=== PATIENT | female | born 1945 | race Caucasian/White ===

== ENCOUNTER 2017-09-09 10:12 | Emergency (ER) | payer OTHER ==
[~2017-09-09] VITALS: Ht 165.1 cm; Wt 65.8 kg
[~2017-09-09 10:12] MED LIST: ASPIR 8181 MG PO; ASPIRIN EC325 M1 PO; AUGMENTIN 875-1 EACH PO; EZETIMIBE PO; FLEXERIL PO; HUMALOG MI100 UNIT/3 SQ; LANTUS SC; LEVOTHROID; LEVOTHYROXIN0.075 MG PO; LISINOPRIL5 MG; LISINOPRIL5 MG PO; OXYBUTYNIN 5 MG5 M1 PO; OXYBUTYNIN 5 MG5 M2 PO; PERCOCET 5-3251 EACH PO; PREDNISONE50 MG PO; ZETIA10 MG PO
[2017-09-09] MEDS ORDERED: MYRBETRIQ25 MG PO (10:30)
[2017-09-09] MEDS ORDERED: VITAMINC500 PO (10:31)
[2017-09-09] MEDS ORDERED: MULTI-BETIC TA1 EACH PO (10:31)
[2017-09-09] MEDS ORDERED: NOVOLOG100 UNIT/1 SUBQ (10:31)
[2017-09-09] MEDS ORDERED: NORCO 5-325 TA1 EACH PO (11:02)
[2017-09-09] MEDS ORDERED: ROBAXIN 750 MG750 MG PO (11:02)
[2017-09-09 11:29] VITALS: BP 130/65
== END 2017-09-09 11:30 | disposition home or self-care (01) ==
LOC: M.ERS 10:12
DX: M54.41 Lumbago with sciatica, right side (principal); E10.9 Type 1 diabetes mellitus without complications; Z79.4 Long term (current) use of insulin; F17.210 Nicotine dependence, cigarettes, uncomplicated; Z88.8 Allergy status to other drugs, medicaments and biological substances

== ENCOUNTER 2018-09-03 06:45 | Emergency (ER) | payer OTHER, MEDICARE ==
[~2018-09-03] VITALS: Ht 165.1 cm; Wt 59.4 kg
[~2018-09-03 06:45] MED LIST changes: +MULTI-BETIC TA1 EACH PO; +MYRBETRIQ25 MG PO; +NORCO 5-325 TA1 EACH PO; +NOVOLOG100 UNIT/1 SUBQ; +ROBAXIN 750 MG750 MG PO; +VITAMINC500 PO
[2018-09-03 07:13] LABS: ABSOLUTE BASOPHILS 0.1 thou/uL (0.0-0.2); ABSOLUTE EOSINOPHILS 0.3 thou/uL (0.0-0.7); ABSOLUTE LYMPHOCYTES 1.2 thou/uL (0.8-5.3); ABSOLUTE MONOCYTES 0.5 thou/uL (0.0-1.2); ABSOLUTE NEUTROPHILS 3.5 thou/uL (1.6-8.1); BASOPHILS 1.3 %; EOSINOPHILS 4.9 %; HEMATOCRIT 43.9 % (37.0-47.0); HEMOGLOBIN 14.8 gm/dL (12.0-15.0); LYMPHOCYTES 21.9 %; MCHC 33.7 g/dL (28.0-37.0); MONOCYTES 8.9 %; MPV 7.9 fl. (7.2-11.1); NUCLEATED RBCS 0 /100WBC; PLATELET COUNT* 277 thou/uL (150-400); RBC 4.93 mil/uL (4.20-5.00); RDW-CV 14.3 % (10.5-14.5); WBC 5.6 thou/uL (4.0-11.0)
[2018-09-03 07:20] LABS: ANION GAP 9 mmol/L (7-16); BUN 10 mg/dL (7-18); CALCIUM 8.7 mg/dL (8.5-10.1); CHLORIDE 103 mmol/L (98-107); CO2 29 mmol/L (21-32); CREATININE 0.7 mg/dL (0.6-1.3); GLUCOSE 158 mg/dL (70-99); POTASSIUM 4.1 mmol/L (3.5-5.1); SODIUM 141 mmol/L (136-145)
[2018-09-03 07:24] LABS: PROTIME 10.1 Seconds (9.20-11.50)
[2018-09-03 07:38] LABS: ALBUMIN 3.8 g/dL (3.4-5.0); ALKALINE PHOSPHATASE 81 U/L (46-116); LIPASE 79 U/L (73-393); NT-PRO BRAIN NAT PEPTIDE 254 pg/mL (<300); SGOT 13 U/L (15-37); SGPT 22 U/L (30-65); TOTAL BILIRUBIN 0.5 mg/dL (<0.1-1.0); TOTAL PROTEIN 7.4 g/dL (6.4-8.2); TROPONIN-I LEVEL <0.06 ng/mL (<0.06)
[2018-09-03 09:48] VITALS: BP 138/54
--- NOTE | 2018-09-05 12:19 | EKG ---
[place] [address] ELECTROCARDIOGRAM REPORT Name: BETINA WILDER Mathew Room: [facility]#: [id number] Admission: 09/03/18 Attend Phys: Discharge: 09/03/18 Date of : 45 Report #: [id number] THIS REPORT FOR: //name// [facility] ED Test Date: 2018-09-03 Test Time: 06:49:36 Pat Name: BETINA PATRICK Department: Room: Gender: F Observer [employer]: MAHESH : 1945 Requested By: Madelyn Thomas Order Number: [id number] MD: Navin Tanner Measurements Intervals [place] Rate: 86 P: 73 [place]: 120 QRS: -55 QRSD: 95 T: 64 QT: 364 QTc: 436 Interpretive Statements Sinus rhythm Left anterior fascicular block Borderline low voltage, extremity leads Anteroseptal infarct, old possible Compared to ECG 12/05/2016 04:58:57 ST (T wave) deviation no longer present Myocardial infarct finding still present Electronically Signed On 09-05-2018 12:18:45 CDT by Navin Tanner [email or web address] <ELECTRONICALLY SIGNED> By: Navin Tanner MD, [facility] 09/05/18 1218 [id number] Navin Tanner MD, [facility] /EPI
== END 2018-09-03 09:49 | disposition left against medical advice (07) ==
LOC: M.ERS 06:45
PROVIDERS: Emergency Medicine
DX: R07.89 Other chest pain (principal); E10.9 Type 1 diabetes mellitus without complications; Z79.4 Long term (current) use of insulin; I10 Essential (primary) hypertension; E78.00 Pure hypercholesterolemia, unspecified; F17.210 Nicotine dependence, cigarettes, uncomplicated; Z88.8 Allergy status to other drugs, medicaments and biological substances